=== PATIENT | male | born 1970 | race African-American/Black ===

== ENCOUNTER 2023-08-18 07:58 | Inpatient (IN) ==
[~2023-08-18 07:58] MED LIST: Buffered Lidocaine 1% SYRIN 1 ml INTRADERM ONE; Famotidine IV 10 MG/ML 2 ml VIAL (20 mg) IV ONE; Lactated Ringers 1000 ml BAG 1,000 ML IV SCH
[2023-08-18 08:47] LABS: Rapid COVID-19 Molecular Undetected (Undetected)
[2023-08-18] MEDS ORDERED: Tranexamic Acid 1 GM/100ML BAG 2,000 MG/200 ML BAG IV ONE (08:53)
[2023-08-18] MEDS ORDERED: Famotidine IV 10 MG/ML 2 ml VIAL (20 mg) ONE (08:53)
[2023-08-18] MEDS ORDERED: ceFAZolin 2 GM in NS PREMIX 2 GM/100 ML BAG IVPB ONE (08:53)
[2023-08-18] MEDS ORDERED: Midazolam 2 mg/2 ml VIAL 1 mg/ml 2 ml VIAL (2 mg) ONE ×2 (10:09→11:23)
[2023-08-18] MEDS ORDERED: fentaNYL 100 mcg/2 ml 50 MCG/ML VIAL ONE (10:09)
[2023-08-18] MEDS ORDERED: ROPIVACAINE 5 MG/ML 30 ML BTL (0.5%) ONE (10:09)
[2023-08-18] MEDS ORDERED: Ondansetron 4 mg VIAL 2 MG/ML 2 ml VIAL ONE (10:35)
[2023-08-18] MEDS ORDERED: Propofol 10 MG/ML 20 ML BTL ONE (10:35)
[2023-08-18] MEDS ORDERED: Lidocaine 2% PF 5 ML VIAL ONE (10:35)
[2023-08-18] MEDS ORDERED: Dexamethasone IV 4 MG/ML VIAL 1 ml VIAL ONE (10:35)
[2023-08-18] MEDS ORDERED: Glycopyrrolate IV 0.2 MG/ML 1 ML VIAL ONE ×2 (11:32→11:50)
[2023-08-18] MEDS ORDERED: KETAMINE HCL 10 MG/ML 20 ml VIAL (200 MG) ONE (11:41)
[2023-08-18] MEDS ORDERED: Acetaminophen IV 1 GM/100ML 1,000 MG/100 ML BAG IV ONE (11:53)
[2023-08-18] MEDS ORDERED: Morphine 2 MG/ML SYRINGE IV PRN (12:08)
[2023-08-18] MEDS ORDERED: Lactulose 30 ml UDC PO PRN (12:08)
[2023-08-18] MEDS ORDERED: Ondansetron 4 mg VIAL 2 MG/ML 2 ml VIAL IV PRN ×2 (12:08→14:48)
[2023-08-18] MEDS ORDERED: Magnesium Hydroxide LIQ 30 ML UDC PO PRN (12:08)
[2023-08-18] MEDS ORDERED: Ondansetron ODT 4 mg TAB 4 MG TAB PO PRN (12:08)
[2023-08-18] MEDS ORDERED: fentaNYL 100 mcg/2 ml 50 MCG/ML VIAL IV PRN (14:48)
[2023-08-18] MEDS ORDERED: Naloxone 0.4 mg VIAL 0.4 mg/ml 1 ml VIAL IV PRN (14:48)
[2023-08-18] MEDS: Lactated Ringers 1000 ml BAG 1,000 ML IV SCH (16:44)
[2023-08-18 17:41] LABS: ABS Lymphocytes 0.9 10^3/uL (1.0-4.8); ABS Monocytes 0.3 10^3/uL (0.0-1.1); Eosinophil % 0.1 %; Hematocrit 39.5 % (38-53); Hemoglobin 13.7 g/dL (13.2-16.3); Lymphocyte % 9.4 %; Mean Corpuscular Hemoglobin 30.9 pg (27-33); Mean Corpuscular Hgb Conc 34.7 g/dL (31-36); Mean Platelet Volume 7.1 fL (7.5-11.2); Platelet Count 402 10^3/uL (150-450); Red Blood Count 4.44 10^6/uL (4.06-5.63); Red Cell Distribution Width 12.9 % (12-17); White Blood Count 9.2 10^3/uL (3.6-10.2)
[2023-08-18 18:29] LABS: Albumin 3.8 g/dL (3.2-5.2); Albumin/Globulin Ratio 1.2 (1-3); Calcium 8.9 mg/dL (8.6-10.3); Creatinine, Serum 0.91 mg/dL (0.67-1.17); Globulin 3.3 g/dL (2-4); Magnesium 1.9 mg/dL (1.9-2.7); Potassium 4.1 mmol/L (3.5-5.0); Total Bilirubin 0.4 mg/dL (0.2-1.0); Total Protein 7.1 g/dL (6.4-8.9); eGFR CKD-EPI 100.2 (>60)
[2023-08-18 19:20] LABS: High Sensitivity Troponin 1 Hr 5 pg/mL (<20)
[2023-08-18] MEDS: Magnesium Hydroxide LIQ 30 ML UDC PO SCH (19:34)
[2023-08-18] MEDS: ceFAZolin 1 GM ADVAN 1 GM in NS 0.9% 50 ML 50 ML IVPB SCH (19:35)
[2023-08-18 21:04] LABS: High Sensitivity Troponin 3 Hr 4 pg/mL (<20)
[2023-08-19] MEDS: ceFAZolin 1 GM ADVAN 1 GM in NS 0.9% 50 ML 50 ML IVPB SCH ×2 (03:40→11:13)
[2023-08-19] MEDS: Lactated Ringers 1000 ml BAG 1,000 ML IV SCH (04:21)
[2023-08-19 06:57] LABS: Hematocrit 34.3 % (38-53); Hemoglobin 11.7 g/dL (13.2-16.3); Mean Platelet Volume 7.8 fL (7.5-11.2); Platelet Count 345 10^3/uL (150-450)
[2023-08-19 07:10] LABS: Calcium 8.5 mg/dL (8.6-10.3); Creatinine, Serum 0.88 mg/dL (0.67-1.17); Potassium 3.7 mmol/L (3.5-5.0); eGFR CKD-EPI 102.2 (>60)
[2023-08-19] MEDS: Magnesium Hydroxide LIQ 30 ML UDC PO SCH (08:24)
[2023-08-19] MEDS ORDERED: Vitamin THERAPEUTIC TAB PO SCH (09:00)
[2023-08-19 09:32] VITALS: BP 130/78
== END 2023-08-19 12:45 | disposition left against medical advice (07) | DRG 302 ==
LOC: AA 07:58 → INTOOBSV 07:58 → SSU 16:55
PROVIDERS: ADMIT Orthopaedic Surgery Adult Reconstructive Orthopaedic Surgery; ATTEND Orthopaedic Surgery Adult Reconstructive Orthopaedic Surgery